=== PATIENT | female | born 1980 | race Caucasian/White ===

== ENCOUNTER 2017-02-17 00:39 | Emergency (ER) | payer OTHER ==
[2017-02-17 00:58] LABS: BILIRUBIN,URINE NEGATIVE (NEGATIVE)
[2017-02-17 01:00] LABS: HCG UR QUAL NEGATIVE; UA w/ MICROSCOPIC CHARGE YES
[2017-02-17] MEDS ORDERED: cefTRIAXone 1 GM VIAL IM STA (01:01)
[2017-02-17] MEDS ORDERED: PHENAZOPYRIDINE 100 MG TABLET PO STA (01:03)
--- NOTE | 2017-02-17 01:03 | ED Physician Documentation ---
PD HPI FEMALE - Stated complaint Stated Complaint: BACK PX - Chief complaint Chief Complaint: Abd Pain - History obtained from History obtained from: Patient - History of Present Illness Timing - onset: Yesterday Timing - details: Gradual onset, Still present Associated symptoms: Back pain, Dysuria, Urinary frequency Similar symptoms before: Work up / diagnostics, Treatment Recently seen: Clinic - Additional information Additional information: Patient is a 36 year old female who was sent in by her pmd for possible pyelonephritis. Patient was diagnosed with uti last week and started on bactrim. Patient states that she took the three day course but she developed lower back and flank pain so her pmd sent her for evaluation, a shot of rocephin and new antibiotics. Patient denied nausea, vomiting, fevers and was able to tolerate PO without difficulty. Review of Systems Constitutional: denies: Fever, Chills Eyes: reports: Reviewed and negative Ears: reports: Reviewed and negative Nose: reports: Reviewed and negative Throat: reports: Reviewed and negative Cardiac: reports: Reviewed and negative Respiratory: denies: Cough, Wheezing GI: denies: Abdominal Pain, Nausea, Vomiting : reports: Dysuria, Frequency Skin: denies: Rash, Lesions Musculoskeletal: reports: Back pain Neurologic: denies: Generalized weakness, Focal weakness Immunocompromised: denies: Immunocompromised PD PAST MEDICAL HISTORY - Past Medical History Past Medical History: No - Past Surgical History Past Surgical History: Yes - Present Medications Home Medications: Ambulatory Orders Medication Instructions Recorded Confirmed Cephalexin [Keflex] 500 mg PO Q8H #30 capsule 02/17/17 Phenazopyridine HCl [Pyridium] 200 mg PO TID PRN #6 tablet 02/17/17 - Allergies Allergies/Adverse Reactions: Allergies Allergy/AdvReac Type Severity Reaction Status Date / Time No Known Drug Allergies Allergy Verified 02/17/17 00:50 - Social History Does the pt smoke?: No Smoking Status: Never smoker Does the pt drink ETOH?: Yes Does the pt have substance abuse?: No - Immunizations Immunizations are current?: Yes - POLST Patient has POLST: No PD ED PE NORMAL - Vitals Vital signs reviewed: Yes - General General: Alert and oriented X 3, No acute distress - HEENT HEENT: Atraumatic, PERRL - Neck Neck: Supple, no meningeal sign, No JVD - Cardiac Cardiac: RRR, No murmur - Respiratory Respiratory: No respiratory distress - Abdomen Abdomen: Soft, Non distended - Derm Derm: Normal color, Warm and dry, No rash - Extremities Extremities: No deformity, No tenderness to palpate, No edema - Neuro Neuro: Alert and oriented X 3, No motor deficit, No sensory deficit, Normal speech - Psych Psych: Normal mood, Normal affect PD ED PE EXPANDED - General General: Alert, No acute distress - Back Back: CVA TTP left Results - Vitals Vitals: Vital Signs - 24 hr 02/17/17 02/17/17 00:48 01:35 Temperature 37.2 C Heart Rate 88 83 Respiratory 16 13 Rate Blood Pressure 135/88 H 118/79 O2 Saturation 100 97 Oxygen O2 Source Room air - Labs Labs: Laboratory Tests 02/17/17 00:53 Urine Color LT. YELLOW Urine Clarity CLEAR Urine pH 6.0 Ur Specific [place] <=1.005 Urine Protein NEGATIVE Urine Glucose (UA) NEGATIVE Urine Ketones NEGATIVE Urine Occult Blood MODERATE H Urine Nitrite NEGATIVE Urine Bilirubin NEGATIVE Urine Urobilinogen 0.2 (NORMAL) Ur Leukocyte Esterase TRACE H Urine RBC 0-5 Urine WBC 4-5 Urine WBC Clumps PRESENT Ur Squamous Epith Cells RARE Squamous Urine Bacteria None Seen Ur Microscopic Review INDICATED Urine Culture Comments INDICATED Urine HCG, Qual NEGATIVE PD MEDICAL DECISION MAKING - ED course Complexity details: reviewed old records, reviewed results, re-evaluated patient , considered differential, d/w patient ED course: Patient was seen and examined at bedside. Urine was collected and patient was treated with rocephin. Patient's urine showed some signs of infection, and patient was discharged home on keflex. Patient was well appearing and able to tolerate PO and was stable for discharge with outpatient follow up. Departure - Departure Disposition: 01 Home, Self Care Clinical Impression: Pyelonephritis Condition: Good Instructions: Pyelonephritis Dc Follow-Up: Ina Vieyra MD [Primary Care Provider] - As Needed Prescriptions: Cephalexin [Keflex] 500 mg PO Q8H #30 capsule Phenazopyridine HCl [Pyridium] 200 mg PO TID PRN #6 tablet PRN Reason: dysuria Comments: Your urine today still showed signs of infection. You will be treated with rocephin and started on keflex. You will need to take it for the next 10 days. You should stay well hydrated and take, motrin, tylenol and pyridium as needed for pain. You should follow up with your doctor early next week. You will be called if your infection is not sensitive to the cephalosporin. You should return to the emergency department for uncontrolled vomiting, fevers, new worsening or uncontrollable symptoms. Discharge Date/Time: 02/17/17 01:35
[2017-02-17 01:09] LABS: UR CULTURE IF IND INDICATED
[2017-02-17] MEDS ORDERED: LIDOCAINE 1% 2 ML VIAL ONE (01:13)
[2017-02-17] MEDS ORDERED: PHENAZOPYRIDINE 100 MG TABLET PO ONE (01:13)
[2017-02-17] MEDS ORDERED: cefTRIAXone 1 GM VIAL ONE (01:13)
[2017-02-17 01:41] VITALS: BP 118/79
== END 2017-02-17 01:35 | disposition home or self-care (01) ==
LOC: ED 00:39
DX: N12 Tubulo-interstitial nephritis, not specified as acute or chronic (principal)
CPT/HCPCS: 81001; 81025; 87086; 87181; 96372; 99283; A9270; 81003

== ENCOUNTER 2020-12-02 07:00 | Outpatient (CLI) | payer OTHER | END 2020-12-02 23:59 | disposition home or self-care (01) | LOC: LAB.R 07:00 | PROVIDERS: ATTEND Emergency Medicine | DX: L03.116 Cellulitis of left lower limb (principal) | CPT/HCPCS: 87070; 87205 ==